=== PATIENT | male | born 2000 | race Hispanic/Latino ===

== ENCOUNTER 2019-09-20 10:33 | Emergency (ER) | payer OTHER, SELFPAY ==
--- NOTE | 2019-09-20 10:37 | ED.GENADULT ---
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 Patient states that yesterday he dropped a piece of equipment on his foot. Since then he has had pain around his great toe. He was wearing steel-toed boots at the time however the pain is approximately at the region where the steel ends. Has been ambulatory. Has not tried anything for symptoms prior to arrival. Related Data Home Medications Medication Instructions Recorded Confirmed No Known Home Medications 09/20/19 09/20/19 Allergies Allergy/AdvReac Type Severity Reaction Status Date / Time No Known Drug Allergies Allergy Verified 09/20/19 10:51 Review of Systems Constitutional Constitutional: Denies fever(s) Musculoskeletal Comments: Left great toe pain Integumentary/Breasts Skin/Breast: Denies rash Neurologic Neurologic: Denies sensory deficit Hematologic/Lymphatic Hematologic/Lymphatic: Denies easy bleeding and Denies easy bruising Patient History Medical History Healthy adult (Acute) Social History lives independently: Yes Smoking Status: Never smoker Exam Initial Vital Signs Initial Vital Signs: Vital Signs Temperature 97.5 F L 09/20/19 10:42 Pulse Rate 88 09/20/19 10:42 Respiratory Rate 16 09/20/19 10:42 Blood Pressure 138/76 09/20/19 10:42 Pulse Oximetry 100 09/20/19 10:42 Cardio Pulses: dorsalis pedis present on the left Skin Lesions: no lesions Rashes: no rashes Neuro Gait: normal gait Sensory Exam: no sensory deficits noted Extrem Other: Patient does have tenderness to palpation along the metatarsal in the MTP joint of the left great toe. Rest of his foot exam is unremarkable Course Orders Ordered: ED Orders 09/20/19 10:40 XR foot LT min 3V Stat Vital Signs Vital signs: Vital Signs - 8 hr 09/20/19 10:42 Temperature 97.5 F L Pulse Rate 88 Respiratory Rate 16 Blood Pressure 138/76 Pulse Oximetry 100 Medical Decision Making Imaging Data Extremity x-ray #1: Attestation: I personally reviewed and interpreted this imaging study as follows: My Impression: Potential avulsion fracture of the proximal phalanx the left great toe MDM Narrative Medical decision making narrative: Neurovascular intact, rate 80 x-ray shows what appears to be a avulsion fracture over the proximal phalanx of the left great toe. He is somewhat tender over this area. There is no other injuries. Patient was given a hard sole shoe. He was given a copy of the x-rays on a CD. He is going to contact his medical department [facility] [employer] to discuss further workup and or work related restrictions. Discharge Plan Departure Patient Disposition: Home Clinical Impression: Pain in toe of left foot Instructions: DI for Toe Fracture Activity Restrictions/Additional Instructions: The hard sole shoe is for your comfort. I do have some concern about an avulsion fracture of your left big toe. You should not require any surgical intervention. I recommend you contact your medical department about any work related restrictions/light duty. Return to the emergency department for any new or worsening symptoms Prescriptions: No Action No Known Home Medications RF: 0
--- NOTE | 2019-09-20 10:40 | DI.RAD.S_ITS ---
PROCEDURE: XR FOOT LT MIN 3V INDICATIONS: pain along MT of great toe TECHNIQUE: 3 views of the foot were acquired. COMPARISON: None. FINDINGS: Bones: There is mild to moderate hallux valgus and pes planus. No fractures or dislocations. No suspicious bony lesions. Soft tissues: No tibiotalar joint effusion. Achilles tendon appears normal. IMPRESSION: No acute left foot fracture or dislocation. Mild to moderate hallux valgus is seen with pes planus. Dictated by: Ishmael Keita M.D. on 09/20/2019 at 11:08 Approved by: Ishmael Keita M.D. on 09/20/2019 at 11:09
[2019-09-20 10:42] VITALS: BP 138/76; PULSE 88; RESP 16; TEMP 36.4; O2SAT 100; BMI 28.7
== END 2019-09-20 11:27 | disposition home or self-care (01) ==
LOC: ED 10:55
PROVIDERS: Emergency Provider Emergency Medicine
DX: M79.675 Pain in left toe(s) (principal); W22.8XXA Striking against or struck by other objects, initial encounter
CPT/HCPCS: 73630; 99282; 99283

== ENCOUNTER 2020-06-29 08:46 | Emergency (ER) | payer OTHER, SELFPAY ==
[2020-06-29 08:51] VITALS: BP 125/74; PULSE 54; RESP 16; TEMP 36.3; O2SAT 96; BMI 28.7
--- NOTE | 2020-06-29 09:03 | ED.LOWEXIN ---
HPI - Extremity Injury (Lower) General Chief Complaint: Extremity Injury, Lower Stated Complaint: LEFT FOOT TOE PAIN Time Seen by Provider: 06/29/20 08:50 Source: patient Mode of arrival: Ambulatory Limitations: no limitations History of Present Illness HPI Narrative: This is a 20-year-old male who comes to the emergency department with complaint of left toe pain. Patient states that he was already having some pain on the outer edge of the nail and thought he was developing an ingrown toenail. Then he dropped a tool box on his toe. Patient states that it has increased the pain. He states he is able to walk on but if he touches the toe or puts pressure directly on the toe he has increased pain. He has some redness. There is a little bit of dried blood in the edge of the nail. Patient denies any other medical issues. No prior surgeries. No allergies to medications. He does not use any tobacco. Patient is in the [employer] [facility] and states they keep his immunizations up to date. Related Data Home Medications Medication Instructions Recorded Confirmed No Known Home Medications 09/20/19 09/20/19 Allergies Allergy/AdvReac Type Severity Reaction Status Date / Time No Known Drug Allergies Allergy Verified 06/29/20 08:51 Review of Systems Review of Systems ROS Unobtainable: All systems reviewed & are unremarkable except as noted in HPI and below Patient History Medical History (Updated 06/29/20 @ 09:41 by Bella Estrada DO) Healthy adult Social History lives independently: Yes Smoking Status: Never smoker Smoking Status: Never smoker alcohol intake frequency: a few times a month Substance Use Type: does not use Exam Narrative Exam Narrative: GENERAL: Alert and oriented x three, well-nourished male in mild distress. HEENT: Head normocephalic, atraumatic, EOMI, pupils reactive, face symmetric, moist mucous membranes NECK: Supple, full range of motion EXTREMITIES: Normal range of motion, no clubbing. Neurovascularly intact. Patient has swelling of the distal left toe there is some mild erythema particularly on the lateral side of the nail with some dried blood along the lateral nail edge. Patient's nail does not look particularly ingrown, there is some callus adjacent. Patient does not have a subungual hematoma. He has tenderness throughout the entire toe. The rest of the foot does not have any bony tenderness including the proximal interphalangeal joint. Patient is able to weightbear without issue. No warmth to the area. No purulent drainage. Cap refills less than 2 seconds in all 5 toes. NEUROLOGICAL: Cranial nerves II through XII grossly intact. Moving all extremities SKIN: Warm, dry, no petechiae, no rashes or lesions other than above. Initial Vital Signs Initial Vital Signs: Vital Signs Temperature 97.3 F L 06/29/20 08:51 Pulse Rate 54 L 06/29/20 08:51 Respiratory Rate 16 06/29/20 08:51 Blood Pressure 125/74 06/29/20 08:51 Pulse Oximetry 96 06/29/20 08:51 Course Orders Ordered: ED Orders 06/29/20 09:02 XR toe LT min 2V Stat Vital Signs Vital signs: Vital Signs - 8 hr 06/29/20 08:51 Temperature 97.3 F L Pulse Rate 54 L Respiratory Rate 16 Blood Pressure 125/74 Pulse Oximetry 96 [facility] - Extremity Injury (Lower) Imaging Data Extremity x-ray #1: Radiologist's Impression: [address] [id number] ReportSigned Patient: Chris Grajeda AMR#: [id number]: 2000Acct:[id number]/Sex: 20 / MDate of Service: 06/29/20Loc: EDAccession Number: [id number] Procedure: XR toe LT min 2V Ordering Provider: Bella Estrada D.O. PROCEDURE: XR TOE LT MIN 2V INDICATIONS: dropped toolbox on toe, pain with palp TECHNIQUE: 4 views of the left toe(s) acquired. COMPARISON: None. FINDINGS: Bones: No fractures or dislocations. No suspicious bony lesions. Mild hallux valgus angulation is noted. Soft tissues: No suspicious soft tissue densities. IMPRESSION: No acute traumatic abnormality of the left foot. Dictated by: Alex Mcdaniel M.D. on 06/29/2020 at 9:37 Approved by: Alex Mcdaniel M.D. on 06/29/2020 at 9:39 [facility] Narrative Medical decision making narrative: Patient has no acute fracture. Plan for wound care, discussed tactics for treating ingrown toenails although toenail does not look particularly ingrown at this time but difficult to tell from injury. Return precautions discussed. Discharge Plan Departure Patient Disposition: Home Clinical Impression: Injury of toe Qualifiers: Encounter type: initial encounter Laterality: left Qualified Code(s): S99.922A - Unspecified injury of left foot, initial encounter Instructions: DI for Ingrown Toenail Activity Restrictions/Additional Instructions: Follow up with your physician in the next week if your symptoms are not resolving. You may take tylenol and/or ibuprofen as needed for pain. Wound Care: Keep wound(s) clean and dry. Wash daily with soap and water only. Do not use over the counter products (alcohol or peroxide)on the wounds unless instructed by a physician. If wound condition worsens (increased/expanding redness, developing fluid blisters, or worsening pain), either contact your doctor for an urgent re-assessment , or return to the Emergency Department. Return if fever greater than 100.4 Fahrenheit, increased swelling, increasing pain or worsening symptoms such as increased discharge or spreading redness. Use warm compresses or soaks 3 times daily for 20 minutes to the affected area. Prescriptions: No Action No Known Home Medications RF: 0
== END 2020-06-29 09:45 | disposition home or self-care (01) ==
PROVIDERS: Emergency Provider Emergency Medicine
DX: S99.922A Unspecified injury of left foot, initial encounter (principal); W20.8XXA Other cause of strike by thrown, projected or falling object, initial encounter
CPT/HCPCS: 73660; 99283

== ENCOUNTER 2020-12-14 07:53 | Emergency (ER) | payer OTHER, SELFPAY ==
[2020-12-14 08:04] VITALS: PULSE 55; O2SAT 98
[2020-12-14 08:05] VITALS: BP 124/60; PULSE 52; O2SAT 98
--- NOTE | 2020-12-14 08:26 | DI.RAD.S_ITS ---
PROCEDURE: XR FINGER RT MIN 2V INDICATIONS: slammed right finger in car door TECHNIQUE: AP hand, 2 views of the right finger(s) acquired. COMPARISON: None. FINDINGS: Bones: No fractures or dislocations. No suspicious bony lesions. Soft tissues: No suspicious soft tissue calcifications. IMPRESSION: No fracture. If the patient's symptoms do not improve recommend followup radiographs in 10 days to assess for healing sclerosis/occult injury. Dictated by: Guille Hylton M.D. on 12/14/2020 at 9:08 Approved by: Guille Hylton M.D. on 12/14/2020 at 9:10
[2020-12-14 08:29] VITALS: BP 123/73; PULSE 62; RESP 16; TEMP 36.4; O2SAT 96; BMI 30.4
[2020-12-14 08:30] VITALS: BP 123/73; PULSE 52; O2SAT 99
[2020-12-14 09:00] VITALS: BP 121/72; PULSE 49; O2SAT 98
--- NOTE | 2020-12-14 09:18 | ED_ITS ---
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 He states that yesterday he had his hand closed in a car door. Since that time he has had continued pain in his right little finger. He is right- hand dominant. Does have a blood clot under the fingernail on his right hand. No other injuries from the event. Related Data Home Medications Medication Instructions Recorded Confirmed No Known Home Medications 09/20/19 09/20/19 Allergies Allergy/AdvReac Type Severity Reaction Status Date / Time No Known Drug Allergies Allergy Verified 12/14/20 08:29 Review of Systems Musculoskeletal Comments: Right little finger injury Integumentary/Breasts Comments: No breaks in the skin Neurologic Comments: Some tingling to the end of the right little finger Hematologic/Lymphatic On Anticoagulants: No Patient History Medical History Healthy adult Social History lives independently: Yes Smoking Status: Never smoker Smoking Status: Never smoker alcohol intake frequency: a few times a month Substance Use Type: does not use Exam Initial Vital Signs Initial Vital Signs: Vital Signs Pulse Rate 55 L 12/14/20 08:04 Pulse Oximetry 98 12/14/20 08:04 HENMT Head: normal to inspection Cardio Pulses: radial pulses present on the right Skin General: no rashes or lesions noted Neuro Sensory Exam: no sensory deficits noted Extrem Other: Patient's right hand exam is unremarkable except for tenderness to palpation distal to the PIP joint of the right little finger with swelling around this area. He has no tenderness over the MCP joint of the right little finger. He has a small subungual hematoma of the right little finger. Procedures Orthopedic Splinting/Casting Injury #1: Side: right Upper Extremity Injury Location: finger Upper Extremity Immobilizer: aluminum form splint Post splinting neuro exam: intact Post splinting vascular exam: intact Placed by: Nursing Course Orders Ordered: ED Orders 12/14/20 08:26 XR finger RT min 2V Stat Vital Signs Vital signs: Vital Signs - 8 hr 12/14/20 08:04 12/14/20 08:05 12/14/20 08:29 Temperature 97.5 F L Pulse Rate 55 L 52 L 62 Respiratory Rate 16 Blood Pressure 124/60 123/73 Pulse Oximetry 98 98 96 Medical Decision Making Imaging Data Extremity x-ray #1: Radiologist's Impression: [address] [address] XRay Report Signed Patient: Chris Grajeda MR#: [id number] : 2000 Acct:[id number] Age/Sex: 20 / M Date of Service: 12/14/20 Loc: ED Accession Number: [id number] ?? Procedure: XR finger RT min 2V Ordering Provider: Dorian hZao D.O. PROCEDURE:? XR FINGER RT MIN 2V ? INDICATIONS:? slammed right finger in car door ? TECHNIQUE:? AP hand, 2 views of the right finger(s) acquired.? ? COMPARISON:? None. ? FINDINGS:? ? Bones:? No fractures or dislocations.? No suspicious bony lesions.? Soft tissues:? No suspicious soft tissue calcifications.? ? IMPRESSION:? No fracture. If the patient's symptoms do not improve recommend followup radiographs in 10 days to assess for healing sclerosis/occult injury. ? ? ? Dictated by: Guille Hylton M.D. on 12/14/2020 at 9:08 ? ? Approved by: Guille Hylton M.D. on 12/14/2020 at 9:10?? MDM Narrative Medical decision making narrative: There were no fractures noted on the x-ray. The small subungual hematoma the right little finger is not amendable to trephination here in the ER. He has swelling distal right little finger with limited range of motion of the D IP joint. He was placed in aluminum foam spl int for comfort. Will continue with Tylenol and ibuprofen. He is given return precautions. He expressed understanding and agreement. Discharge Plan Departure Patient Disposition: Home Clinical Impression: Contusion of right little finger Instructions: DI for Contusion Activity Restrictions/Additional Instructions: There were no fractures noted on the x-rays. I suspect that you are going to improve over the next couple days however until then I do recommend that you use the splint that you were given today to provide soft tissue rest. 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 Return to the emergency department for any new or worsening symptoms. Prescriptions: No Action No Known Home Medications RF: 0
[2020-12-14 09:30] VITALS: BP 125/77; PULSE 49; O2SAT 99
== END 2020-12-14 10:05 | disposition home or self-care (01) ==
PROVIDERS: Emergency Provider Emergency Medicine
DX: S60.051A Contusion of right little finger without damage to nail, initial encounter (principal); W23.0XXA Caught, crushed, jammed, or pinched between moving objects, initial encounter
CPT/HCPCS: 73140; 99283

== ENCOUNTER 2021-07-10 14:40 | Emergency (ER) | payer OTHER, SELFPAY ==
[2021-07-10 14:54] VITALS: BP 146/100; PULSE 68; RESP 18; TEMP 36.6; O2SAT 98; BMI 29.0
--- NOTE | 2021-07-10 15:35 | ED.EAR ---
HPI - Ear Problem <EULALIO Weller - Last Filed: 07/10/21 15:44> General Chief complaint: Ear Stated complaint: ear pain Time Seen by Provider: 07/10/21 15:11 Source: patient Mode of arrival: Ambulatory History of Present Illness HPI Narrative: This is a 21-year-old male presents to the emergency department for left ear pain for the last 1.5 days. Patient states he has taken Tylenol a few times for this which helped but this morning he woke up and he lost his hearing in his left ear. He denies any drainage from his ear, he denies any congestion, runny nose, cough, seasonal allergies, history of frequent ear infections, Fever, shortness of breath, wheezing, chest pain or any other symptom. Related Data Previous Rx's Medication Instructions Recorded amoxicillin 875 mg tablet 875 mg PO BID 5 Days #10 tab 07/10/21 fluticasone propionate 50 1 spray INTRANASAL BID PRN 5 Days 07/10/21 mcg/actuation nasal #16 g spray,suspension (Flonase Allergy Relief) ibuprofen 600 mg tablet 600 mg PO Q6H PRN #30 tab 07/10/21 loratadine 10 mg tablet (Claritin) 10 mg PO DAILY 14 Days #14 tab 07/10/21 Allergies Allergy/AdvReac Type Severity Reaction Status Date / Time No Known Drug Allergies Allergy Verified 07/10/21 14:56 Review of Systems <EULALIO Weller - Last Filed: 07/10/21 15:44> Review of Systems Narrative: General: denies fever, chills Head/Neck: denies headache, neck pain, denies any dizziness Ears: endorses left ear pain, denies ear discharge, endorses left ear with muffled hearing Cardio: denies chest pain, palpitations Respiratory: denies shortness of breath, cough GI: denies abdominal pain, vomiting, or diarrhea Patient History <EULALIO Weller - Last Filed: 07/10/21 15:44> Medical History Healthy adult Social History lives independently: Yes Smoking Status: Never smoker Smoking Status: Never smoker alcohol intake frequency: a few times a month Substance Use Type: does not use Exam <EULALIO Weller - Last Filed: 07/10/21 15:44> Narrative Exam Narrative: Independently reviewed vital signs and nursing notes. General: Awake, alert, nontoxic, no cardiorespiratory distress Head/Neck: Atraumatic, neck full range of motion, no cervical lymphadenopathy Eyes: EOMI, conjunctiva normal Ears: external ears normal, right TM with surrounding erythema left TM is bulging, serous fluid TM no purulence no light reflex, no cerumen present, no tenderness with otoscope exam, appears to be a middle ear effusion, there is some mild erythema surrounding Nose: nares patent, no rhinorrhea Mouth/Throat: moist mucus membranes, posterior pharynx normal, no oral lesions Cardio: Regular rate and rhythm, no peripheral edema Respiratory: CTAB unlabored without wheezing, stridor, or rales. No retractions. MSK: Moves all extremities, neurovascularly intact Skin: Normal capillary refill, no rash Neuro: Normal speech and cognition, normal gait Initial Vital Signs Initial Vital Signs: Vital Signs Temperature 97.9 F 07/10/21 14:54 Pulse Rate 68 07/10/21 14:54 Respiratory Rate 18 07/10/21 14:54 Blood Pressure 146/100 H 07/10/21 14:54 Pulse Oximetry 98 07/10/21 14:54 <Gracy Duke DO - Last Filed: 07/11/21 06:50> Initial Vital Signs Initial Vital Signs: Vital Signs Temperature 97.9 F 07/10/21 14:54 Pulse Rate 68 07/10/21 14:54 Respiratory Rate 18 07/10/21 14:54 Blood Pressure 146/100 H 07/10/21 14:54 Pulse Oximetry 98 07/10/21 14:54 Course <EULALIO Weller - Last Filed: 07/10/21 15:44> Vital Signs Vital signs: Vital Signs - 8 hr 07/10/21 14:54 Temperature 97.9 F Pulse Rate 68 Respiratory Rate 18 Blood Pressure 146/100 H Pulse Oximetry 98 <Gracy Duke DO - Last Filed: 07/11/21 06:50> Vital Signs Vital signs: Vital Signs - 8 hr 07/10/21 14:54 Temperature 97.9 F Pulse Rate 68 Respiratory Rate 18 Blood Pressure 146/100 H Pulse Oximetry 98 Medical Decision Making <Sandra Samuels Kaya [facility] - Last Filed: 07/10/21 15:44> [facility] Narrative Medical decision making narrative: this is a 21-year-old presents to the emergency department for left ear pain for 1.5 days, this morning he states he lost his hearing his left ear, [place] but they could see him for 2 weeks so they sent him to the emergency department. Patient states he has been taking Tylenol for this, on otoscopic exam , patient appears to have a middle ear effusion of the left middle ear, non suppurative, with surrounding erythema, right TM is normal with surrounding erythema, suspect a viral mental allergies, this may also be eustachian tube dysfunction, acute otitis media. patient was given a prescription for Claritin, Motrin fluticasone to try for the next couple of days to see if this improves, if he develops a fever or has worsening ear pain, he was given prescription for amoxicillin to start take for 5 days. He understands [place], he denies any allergies, he denies any recent fever, or illness. Patient is appropriate and amenable to discharge home. Vital signs are stable on repeat examination is unremarkable. Patient has been informed of results. Patient has been given strict return to ER precautions for any new or worsening symptoms. Patient understands to follow up closely with outpatient providers as instructed. Patient understands plan and agrees to discharge home. All questions and concerns answered at this time. Discharge Plan Departure Patient Disposition: Home Clinical Impression: Earache Acute RUDY (middle ear effusion) Qualifiers: Laterality: left Qualified Code(s): H65.192 - Other acute nonsuppurative otitis media, left ear Instructions: Eustachian Tube Dysfunction, Middle Ear Infection, DI for Ear Pain-Adult Activity Restrictions/Additional Instructions: *You have been diagnosed with A middle ear effusion on the left this may turn into a ear infection but right now there are no signs of pus behind the eardrum. Middle ear effusions are best managed with medications for allergies like Flonase and Claritin. Please use these medications for the next few days to see if they help reduce your pain and loss of hearing. Please take ibuprofen every 6 hours as needed for pain, this also works on inflammation. If you do not have any improvement of your pain or if you develop a fever and start having worsening pain over the next 1-2 days then start your antibiotic and take it for 5 days. Please follow-up with your primary care provider if you are not better. *What to do: *Please continue to take your regular medications as directed. [ x] New medication prescriptions sent to your pharmacy: [[facility]] [ ] New medication written as a paper prescription [ ] No new medications given *Please follow up with your primary care provider in 2-3 days, call for an appointment. Let them know you were seen in the Emergency Department and that we asked that you be seen for follow-up. We will electronically transmit a record of today's note if your PCP is in our system *If you do not have a primary care provider please contact [phone] to establish care with one of the [facility] primary care providers. *Return to Emergency Department if you should have any new, worsening or concerning symptoms, such as [fever greater than 101F, chills, worsening pain, persistent vomiting or other bothersome symptoms] Prescriptions: New amoxicillin 875 mg tablet 875 mg PO BID 5 Days Qty: 10 0RF fluticasone propionate [Flonase Allergy Relief] 50 mcg/actuation spray,suspension 1 spray intranasal BID PRN (Reason: allergy symptoms) 5 Days Qty: 16 0RF Rx Instructions: administer into each nostril loratadine [Claritin] 10 mg tablet 10 mg PO DAILY 14 Days Qty: 14 0RF ibuprofen 600 mg tablet 600 mg PO Q6H PRN (Reason: pain) Qty: 30 0RF Stand Alone Forms: Work Release Note <Gracy Duke DO - Last Filed: 07/11/21 06:50> [facility] ED Attending Jakeature Attestation: I was immediately available in the department for consultation. Documentation has been reviewed. I agree with assessment and plan.
--- NOTE | 2021-07-12 10:15 | PC.NURSE ---
[facility] pharmacy called stating that they did not have amoxicillin in dose ordered. Dr. Duke changed dose to 750 mg po bid x 5 days. Pharmacy will return call if any further questions.
== END 2021-07-10 15:56 | disposition home or self-care (01) ==
PROVIDERS: Emergency Provider Nurse Practitioner Critical Care Medicine
DX: H65.192 Other acute nonsuppurative otitis media, left ear (principal)
CPT/HCPCS: 99281